=== PATIENT | male | born 1950 | race Two or more races ===

== ENCOUNTER 2018-05-28 22:34 | Emergency (ER) | payer OTHER ==
[~2018-05-28] VITALS: Ht 162.6 cm; Wt 60.8 kg
[2018-05-28] MEDS ORDERED: LOSARTAN-HCTZ1 EAC1 (22:44)
== END 2018-05-29 04:10 | disposition home or self-care (01) ==
LOC: ER 22:34
DX: M54.5 Low back pain (principal)

== ENCOUNTER 2018-08-19 22:03 | Emergency (ER) | payer OTHER ==
[~2018-08-19] VITALS: Ht 162.6 cm; Wt 60.8 kg
[~2018-08-19 22:03] MED LIST: LOSARTAN-HCTZ1 EAC1
[2018-08-20] MEDS ORDERED: PEPCID40 MG PO (04:43)
[2018-08-20] MEDS ORDERED: LEVSIN/SL0.125 MG SL (04:43)
[2018-08-20] MEDS ORDERED: ZOFRAN ODT4 MG PO (04:43)
== END 2018-08-20 04:46 | disposition home or self-care (01) ==
LOC: ER 22:03
DX: K29.70 Gastritis, unspecified, without bleeding (principal)